=== PATIENT | male | born 1940 | race Caucasian/White ===

== ENCOUNTER → 2021-12-21 11:18 | Outpatient (CLI) | payer MEDICARE, SELFPAY ==
[2021-12-21 11:56] LABS: Basophils # 0.1 K/mm3 (0-0.2); Basophils % 0.8 % (0.1-2.0); Eosinophils # 0.3 K/mm3 (0.0-0.4); Eosinophils % 4.6 % (0.1-12.0); Hematocrit 46.8 % (42.0-52.0); Hemoglobin 15.6 g/dL (14.1-18.0); Lymphocytes # 1.6 K/mm3 (0.7-4.5); Lymphocytes % 24.6 % (10-50); Mean Corpuscular HGB Conc 33.4 g/dL (31.8-35.4); Mean Corpuscular Hemoglobin 33.1 pg (27.0-31.2); Monocytes # 0.5 K/mm3 (0.1-1.0); Monocytes % 8.1 % (1.7-9.3); Neutrophils % 61.9 % (37.0-80.0); Platelet Count 268 K/mm3 (142-424); Red Blood Count 4.72 M/mm3 (4.60-6.20); Red Cell Distribution Width 12.4 % (11.5-17.5); White Blood Count 6.4 K/mm3 (4.8-10.8)
[2021-12-21 12:20] LABS: Chloride 103 mmol/L (98-107); Potassium 4.8 mmoL/L (3.5-5.1); Sodium 136 mmol/L (136-145)
[2021-12-21 12:22] LABS: Alanine Aminotransferase 73 U/L (12-78); Alkaline Phosphatase 98 U/L (38-126); Aspartate Amino Transferase 55 U/L (17-59); Bilirubin,Total 0.8 mg/dl (0.2-1.3); Blood Urea Nitrogen 23 mg/dl (9-20); Estimated Glomerular Filt Rate 93 ml/min (>60); GFR (African American) 112 ML/MIN (>60)
[2021-12-21 12:23] LABS: Albumin/Globulin Ratio 1.5 (1.1-1.8); Anion Gap 8.8 mEq/L (5-15); Calcium 8.9 mg/dl (8.4-10.2); Carbon Dioxide 29 mmol/L (22.0-30.0); Globulin 2.6 g/dL (1.3-3.2); Glucose 93 mg/dl (74-100); Total Protein,Serum 6.6 g/dl (6.3-8.2)
== END ==
PROVIDERS: PCP Internal Medicine Adolescent Medicine; Referring Provider Otolaryngology; Visit Provider Internal Medicine Adolescent Medicine
DX: Z01.812 Encounter for preprocedural laboratory examination (principal); Z11.52 Encounter for screening for COVID-19; C44.91 Basal cell carcinoma of skin, unspecified
CPT/HCPCS: 36415; 80053; 85025; C9803; U0003; U0005

== ENCOUNTER → 2021-12-24 08:34 | Day surgery (SDC) | payer MEDICARE, SELFPAY ==
[2021-12-23 08:58] VITALS: BMI 29.2
[2021-12-24 09:09] VITALS: BP 160/84; PULSE 111; RESP 18; TEMP 37.5; O2SAT 98
--- NOTE | 2021-12-24 11:02 | SUR.PREOP ---
Procedure postponed per Dr Oliveira. Patient to follow up with Dr Hall to address temperature and heart rate and to obtain clearance to stop taking aspirin prior to procedure.
== END ==
PROVIDERS: PCP Family Medicine; Visit Provider Otolaryngology
DX: Z53.8 Procedure and treatment not carried out for other reasons (principal); C44.91 Basal cell carcinoma of skin, unspecified
CPT/HCPCS: 40525

== ENCOUNTER → 2022-02-03 09:56 | Outpatient (CLI) | payer MEDICARE, SELFPAY ==
[2022-02-03 10:22] LABS: Basophils # 0.1 K/mm3 (0-0.2); Basophils % 1.1 % (0.1-2.0); Eosinophils # 0.2 K/mm3 (0.0-0.4); Eosinophils % 3.9 % (0.1-12.0); Hematocrit 44.4 % (42.0-52.0); Hemoglobin 14.8 g/dL (14.1-18.0); Lymphocytes # 1.5 K/mm3 (0.7-4.5); Lymphocytes % 25.6 % (10-50); Mean Corpuscular HGB Conc 33.3 g/dL (31.8-35.4); Mean Corpuscular Hemoglobin 33.8 pg (27.0-31.2); Mean Corpuscular Volume 101.6 fl (80-94); Mean Platelet Volume 8.7 fl (7.4-10.4); Monocytes # 0.5 K/mm3 (0.1-1.0); Monocytes % 8.9 % (1.7-9.3); Neutrophils # 3.6 K/mm3 (1.8-7.8); Neutrophils % 60.5 % (37.0-80.0); Platelet Count 281 K/mm3 (142-424); Red Blood Count 4.37 M/mm3 (4.60-6.20)
[2022-02-03 10:54] LABS: Alanine Aminotransferase 65 U/L (12-78); Albumin Level 3.8 g/dl (3.5-5.0); Albumin/Globulin Ratio 1.6 (1.1-1.8); Alkaline Phosphatase 79 U/L (38-126); Aspartate Amino Transferase 42 U/L (17-59); Bilirubin,Total 0.7 mg/dl (0.2-1.3); Blood Urea Nitrogen 26 mg/dl (9-20); Calcium 9.1 mg/dl (8.4-10.2); Carbon Dioxide 29 mmol/L (22.0-30.0); Chloride 105 mmol/L (98-107); Estimated Glomerular Filt Rate 108 ml/min (>60); GFR (African American) 131 ML/MIN (>60); Globulin 2.4 g/dL (1.3-3.2); Glucose 99 mg/dl (74-100); Sodium 138 mmol/L (136-145); Total Protein,Serum 6.2 g/dl (6.3-8.2)
== END ==
PROVIDERS: Visit Provider Otolaryngology
DX: Z01.818 Encounter for other preprocedural examination (principal); Z11.52 Encounter for screening for COVID-19; C44.91 Basal cell carcinoma of skin, unspecified
CPT/HCPCS: 36415; 80053; 85025; C9803; U0003; U0005

== ENCOUNTER 2022-02-06 06:08 | Day surgery (SDC) | payer MEDICARE, SELFPAY ==
[2022-02-03 12:36] VITALS: BMI 27.7
[2022-02-06 06:28] VITALS: BP 138/74; PULSE 78; RESP 18; TEMP 37.1; O2SAT 97
--- NOTE | 2022-02-06 07:05 | P.PN_ITS ---
[facility] Anesthesia Checklist - Patient Identification Patient Identification: Arm Band - Structural Data Admitted From: Home Planned Operative Procedure/s: Excision lesion lip Consent for Planned Operative Procedure(s) Verified: Yes - NPO Status Verified Time NPO: 00:00 - Additional verifications Anesthesia Reactions: No Hx Blood Transfusions: No Blood Transfusion Reaction: No - Airway Assessment C-Spine Mobility Assessed: Yes TMJ Mobility Assessed: Yes Dentition: Poor Dentition - Neurological Assessment Level of Consciousness: Awake Hx Seizures: No Numbness or tingling in extremities: No - Anesthesia Plan Anesthesia Risk discussed: Yes Anesthesia Plan: Verified ASA Class: II Anesthesia Type: MAC [facility] History I have reviewed the patient's past medical history: Yes Medical History: Reports:: Hypertension Denies:: Cancer, Diabetes Mellitus Type 1, Diabetes Mellitus Type 2, Internal Pacemaker, MRSA, Seizures *Have you ever received a pneumonia vaccine?: Yes *Have you received a flu vaccine this season?: Yes Other Medical History: Reports: Other. Denies: Blood Transfusion Reaction Anesthesia experience/problems:: None Other Surgeries: Yes: Other. No: Pacemaker Amputation: No Fractures: No - *Social History Last grade of school completed: High school graduate Smoking Status: Never smoker Alcohol Intake: never Substance Use Type: denies use *Occupational Status:: retired Housing: house Household Members: spouse *Travel in the last 8 weeks: None Family Hx:: Non-contributory
--- NOTE | 2022-02-06 09:03 | P.OP_ITS ---
Date of procedure: 02/06/22 Pre-op Diagnosis:: Basal cell carcinoma lower lip Post-op Diagnosis:: Basal cell carcinoma lower lip Procedure performed:: Wide local excision with complex multilayer reconstruction Surgeon:: Marques Oliveira MD [employer] IN[employer]ER:: Other Anesthesia: MAC Estimated blood loss (mL): 0 Operative findings:: Exophytic basal cell skin cancer 1 cm from the left oral commissure Operative note:: Patient was brought to the operating room and after adequate IV sedation he was placed supine and 1% lidocaine with epinephrine used to locally infiltrate the lower lip then the lip was prepped and draped in the usual sterile fashion and then the vermilion border marked. The obvious skin cancer was excised with 5 mm margins and the patient included full-thickness resection of the lower lip including the dry skin, vermilion border, and wet portion of the lip as well as the underlying minor salivary glands and the orbicularis monica muscle. The labial artery was identified and ligated with 3-0 silk. The specimen was marked and sent for section analysis. The full-thickness V-shaped excision was then closed by reapproximating the mucosal layer with 5-0 chromic, the orbicularis and submucosal layer using 4-0 Vicryl and the wet lip with 5-0 chromic and the dry skin with 6-0 nylon. Care was taken to realign the vermilion border. A sterile dressing was applied and the procedure concluded. All counts correct. Blood loss minimal. Patient was sent recovery in stable condition. Condition: stable Disposition: PACU Complications:: None
[2022-02-06 09:10] VITALS: BP 111/74; PULSE 69; RESP 16; TEMP 36.6; O2SAT 95
[2022-02-06 09:25] VITALS: BP 125/72; PULSE 68; RESP 16; TEMP 36.6; O2SAT 96
[2022-02-06 09:40] VITALS: BP 135/87; PULSE 73; RESP 16; TEMP 36.6; O2SAT 96
[2022-02-06 09:55] VITALS: BP 133/87; PULSE 62; RESP 16; TEMP 36.6; O2SAT 96
== END 2022-02-06 09:55 | disposition home or self-care (01) ==
LOC: OR 06:10
PROVIDERS: PCP Internal Medicine Adolescent Medicine; Visit Provider Otolaryngology
DX: C44.01 Basal cell carcinoma of skin of lip (principal); I10 Essential (primary) hypertension; Z88.2 Allergy status to sulfonamides; Z79.82 Long term (current) use of aspirin; Z79.899 Other long term (current) drug therapy
CPT/HCPCS: 13152; 40530; 88305

== ENCOUNTER 2023-07-04 19:01 | Emergency (ER) | payer MEDICARE, SELFPAY ==
[2023-07-04 19:02] VITALS: BP 151/104; PULSE 108; RESP 20; TEMP 36.6; O2SAT 97; BMI 30.4
--- NOTE | 2023-07-04 19:42 | CT_ITS ---
PROCEDURE INFORMATION: Exam: CT Abdomen And Pelvis With Contrast Exam date and time: 07/04/2023 8:13 PM Age: 82 years old Clinical indication: Abdominal pain; Additional info: Hematuria, concern for bladder mass on US TECHNIQUE: Imaging protocol: Computed tomography of the abdomen and pelvis with contrast. Radiation optimization: All CT scans at this facility use at least one of these dose optimization techniques: automated exposure control; mA and/or kV adjustment per patient size (includes targeted exams where dose is matched to clinical indication); or iterative reconstruction. Contrast material: ISOVUE; Contrast volume: 75 ml; Contrast route: IV; REPORTING DATA: Count of CT and Cardiac NM exams in prior 12 months: This patient has received 0 known CTs and 0 known cardiac nuclear medicine studies in the 12 months prior to the current study. COMPARISON: No relevant prior studies available. FINDINGS: Liver: Unremarkable. Gallbladder and bile ducts: Unremarkable. Pancreas: Unremarkable. Spleen: Unremarkable. Adrenal glands: Unremarkable. Kidneys and ureters: Left renal cyst. Mild bilateral hydroureteronephrosis. Stomach and bowel: Colonic diverticulosis without CT evidence of acute diverticulitis. Appendix: No evidence of appendicitis. Intraperitoneal space: Unremarkable. Vasculature: Unremarkable. Lymph nodes: Unremarkable. Urinary bladder: Soft tissue density within the posterior aspect of the bladder measuring 5.6 x 3.1 cm. Reproductive: Enlarged prostate gland measuring 7.3 cm. Bones/joints: Severe left hip osteoarthrosis. Soft tissues: Unremarkable. IMPRESSION: 1. Soft tissue density within the dependent posterior aspect of the bladder measuring 5.6 cm, indeterminate for mass lesion versus blood products in the setting of hematuria and incompletely evaluated on this single contrast phase exam . Recommend CT urogram to assess intrinsic hyperdensity versus enhancement of material within the bladder lumen. 2. Mild bilateral hydroureteronephrosis. 3. Prostatomegaly. COMMENTS: Consistent with the [employer]'s Incidental Findings Committee white paper (J Am Saida Radiol 2018): Any incidental renal lesion less than 1 cm or classified as too small to characterize, or any incidental cystic renal lesion characterized as simple-appearing, is likely benign. No follow-up imaging is recommended for these lesions per consensus recommendations based on imaging criteria.
--- NOTE | 2023-07-04 19:44 | HMH.EDGENADL ---
Discharge Plan Disposition Patient Disposition: Home, Self-Care Prescriptions Prescriptions: New levofloxacin 500 mg tablet 500 mg PO DAILY 14 Days Qty: 14 0RF No Action tamsulosin 0.4 mg capsule,extended release 24hr 0.4 mg PO Q24H oxybutynin chloride 5 mg tablet 15 mg PO DAILY furosemide 40 mg tablet 40 mg PO DAILY meloxicam 15 mg tablet 15 mg PO DAILY amlodipine 5 mg tablet 5 mg PO DAILY tramadol 50 mg tablet 50 mg PO Q6H PRN (Reason: pain) hydrocodone-acetaminophen 5-325 mg tablet 1 tab PO Q6H PRN (Reason: pain) potassium chloride 10 mEq capsule, extended release 10 meq PO DAILY aspirin 81 MG capsule 81 mg PO DAILY hydrocodone-acetaminophen 1 EACH tablet 1 each PO QID PRN (Reason: Moderate To Severe Pain) 3 Days Qty: 10 0RF ondansetron 4 MG tablet,disintegrating 4 mg PO BIDP PRN (Reason: Nausea And Vomiting) 5 Days Qty: 10 0RF Referrals Follow up/Referrals: Adolph Infante MD [Primary Care Provider] - See instructions Haja Vanessa MD [Staff Physician] - See instructions Activity Restrictions/Add. Instructions Additional Instructions/Restrictions: There is some diagnostic uncertainty with what is going on your bladder at the moment. Your CAT scan and ultrasound were concerning for possible malignancy versus clot. It is also possible that the mass that we are seeing is an extension of your prostate and your prostate could be infected. It imperative that you follow-up with a urologist and take your antibiotics as instructed. We do not have a urologist at [facility] will need to call make an appointment with the urologist of your choosing. Clinical Impressions Clinical Impression: Hematuria, Bladder mass, Acute UTI Instructions Patient Instructions: DI for Urinary Tract Infection (UTI), DI for Urinary Tract Infection in Children Discharge ED Provider: Jace Myers General Adult HPI General Chief complaint: Urogenital-Male Stated complaint: passing blood thru kidneys Time Seen by Provider: 07/04/23 19:09 Mode of Arrival: Wheelchair Source of Information: Patient Limitations: No Limitations Description of Symptoms (Recalled from ER Triage Doc. by RN): Patient states he started having blood in urine today. Reports it does not hurt just has been burning. History of Present Illness HPI narrative: Patient is an 82-year-old man on aspirin presents today with hematuria. States he has some very mild dysuria but otherwise is predominantly painless. No significant weight loss night sweats or any other complaints. He has known history of BPH was treated with green laser therapy by Dr. Mihai Marcus in 2018. States his PSA has been trending up recently. Denies any flank pain denies any fevers or chills or any other symptoms. States he is having no difficulty with getting his urine out no clots that he is passing. No significant abdominal pain. Related Data Home Medications Medication Instructions Recorded Confirmed tamsulosin 0.4 mg capsule 0.4 mg PO Q24H prostate 01/05/18 02/11/22 amlodipine 5 mg tablet 5 mg PO DAILY bp 11/26/21 02/11/22 furosemide 40 mg tablet 40 mg PO DAILY Fluid 11/26/21 02/11/22 hydrocodone 5 mg-acetaminophen 325 1 tab PO Q6H PRN pain 11/26/21 02/11/22 mg tablet meloxicam 15 mg tablet 15 mg PO DAILY Pain 11/26/21 02/11/22 oxybutynin chloride 5 mg tablet 15 mg PO DAILY bladder 11/26/21 02/11/22 potassium chloride 10 mEq 10 meq PO DAILY Supplement 11/26/21 02/11/22 capsule,extended release tramadol 50 mg tablet 50 mg PO Q6H PRN pain 11/26/21 02/11/22 aspirin 81 mg capsule 81 mg PO DAILY Supplement 12/24/21 02/11/22 Previous Rx's Medication Instructions Recorded hydrocodone 7.5 mg-acetaminophen 1 each PO QID PRN Moderate To 02/06/22 325 mg tablet Severe Pain 3 days #10 tabs ondansetron 4 mg disintegrating 4 mg PO BIDP PRN Nausea And 02/06/22 tablet Vomiting 5 days #10 tabs levofloxacin 500 mg tablet
[2023-07-04 19:52] LABS: Appearance,Urine TURBID (Clear); Bilirubin,Urine Negative (Negative); Blood, Urine 3+ (Negative); Color,Urine RED (Yellow); Glucose,Urine (UA) Negative (Negative); Ketones,Urine 1+ (Negative); Leukocyte Esterase,Urine 2+ (Negative); Microscopic, Urine URINE MICROSCOPIC (MICROSCOPIC); Nitrate,Urine POSITIVE (Negative); PH,Urine 6.5 (5.0-8.5); Protein,Urine 3+ (Negative)
[2023-07-04 19:54] LABS: Basophils % 0.7 % (0.1-2.0); Chloride 108 mmol/L (98-107); Eosinophils # 0.2 K/mm3 (0.0-0.4); Eosinophils % 3.4 % (0.1-12.0); Hematocrit 52.1 % (42.0-52.0); Hemoglobin 16.7 g/dL (14.1-18.0); Lymphocytes # 1.8 K/mm3 (0.7-4.5); Lymphocytes % 28.5 % (10-50); Mean Corpuscular HGB Conc 32.1 g/dL (31.8-35.4); Mean Corpuscular Hemoglobin 32.1 pg (27.0-31.2); Mean Platelet Volume 8.4 fl (7.4-10.4); Monocytes # 0.4 K/mm3 (0.1-1.0); Monocytes % 6.3 % (1.7-9.3); Neutrophils # 3.9 K/mm3 (1.8-7.8); Neutrophils % 61.1 % (37.0-80.0); Platelet Count 252 K/mm3 (142-424); Potassium 3.9 mmoL/L (3.5-5.1); Red Blood Count 5.21 M/mm3 (4.60-6.20); Red Cell Distribution Width 12.7 % (11.5-17.5); Sodium 143 mmol/L (136-145); White Blood Count 6.3 K/mm3 (4.8-10.8)
[2023-07-04 19:56] LABS: Alanine Aminotransferase 85 U/L (12-78); Aspartate Amino Transferase 59 U/L (17-59); Blood Urea Nitrogen 20 mg/dl (9-20); Creatinine Clearance Estimated 90 mL/min (50-200); Estimated Glomerular Filt Rate 81 ml/min (>60); GFR (African American) 98 ML/MIN (>60)
[2023-07-04 19:57] LABS: Albumin Level 4.2 g/dl (3.5-5.0); Albumin/Globulin Ratio 1.2 (1.1-1.8); Alkaline Phosphatase 130 U/L (38-126); Anion Gap 15.9 mEq/L (5-15); Bilirubin,Total 0.8 mg/dl (0.2-1.3); Calcium 9.9 mg/dl (8.4-10.2); Carbon Dioxide 23 mmol/L (22.0-30.0); Globulin 3.5 g/dL (1.3-3.2); Glucose 110 mg/dl (74-100); Total Protein,Serum 7.7 g/dl (6.3-8.2)
[2023-07-04 20:02] LABS: Activated Partial Thrombo Time 26.4 seconds (22.8-30.6); INR 0.98 (0.9-1.1); Prothrombin Time 10.6 seconds (10.1-12.5)
[2023-07-04 20:15] LABS: Bacteria,Urine 2+ /lpf; RBC,Urine TNTC #/hpf (0-3)
--- NOTE | 2023-07-04 21:18 | PC.NURSE ---
Rounded on patient at this time
[2023-07-04 21:29] VITALS: BP 140/89; PULSE 97; RESP 16; TEMP 36.8
== END 2023-07-04 21:39 | disposition home or self-care (01) ==
PROVIDERS: Emergency Provider Student in an Organized Health Care Education/Training Program; PCP Family Medicine
DX: R31.9 Hematuria, unspecified (principal); N39.0 Urinary tract infection, site not specified; Z79.82 Long term (current) use of aspirin; N40.1 Benign prostatic hyperplasia with lower urinary tract symptoms; N32.89 Other specified disorders of bladder
CPT/HCPCS: 74177; 80053; 81001; 85025; 85610; 85730; 87086; 96360; 99285; Q9967

== ENCOUNTER 2024-02-25 15:34 | Outpatient (CLI) | payer MEDICARE, SELFPAY ==
--- NOTE | 2024-02-25 | XR_ITS ---
PROCEDURE INFORMATION: Exam: XR Left Hip Exam date and time: 02/25/2024 4:06 PM Age: 83 years old Clinical indication: Hip pain; Left hip; Additional info: Left hip pain TECHNIQUE: Imaging protocol: Radiologic exam of the left hip. Views: 2 or 3 views hip with pelvis when performed. COMPARISON: CT ABDOMEN PELVIS W CON 07/04/2023 8:13 PM FINDINGS: Bones/joints: Severe degenerative osteoarthritis, left hip joint. [id number] configuration left hip joint. Prominent foci of subcortical cystic erosive change within the femoral head as well as the subcortical margin of the acetabulum. No evidence of acute osseous injury. Moderate narrowing right hip joint. Soft tissues: Unremarkable. IMPRESSION: Severe degenerative osteoarthritis, left hip joint.
--- NOTE | 2024-02-25 15:39 | XR_ITS ---
PROCEDURE INFORMATION: Exam: XR Right Knee Exam date and time: 02/25/2024 4:06 PM Age: 83 years old Clinical indication: Pain; Knee; Right; Additional info: Pain in legs in back TECHNIQUE: Imaging protocol: Radiologic exam of the right knee. Views: 3 views. COMPARISON: VENOUS LOWER EXT ARABELLA 03/13/2017 3:23 PM FINDINGS: Bones/joints: Moderate tricompartmental degenerative osteoarthritis. Prominent regions of subcortical cystic degenerative change involving the femoral condyles as well as the tibial plateau. Soft tissues: Normal. IMPRESSION: 1. No evidence of acute osseous injury. 2. Moderate tricompartmental degenerative osteoarthritis.
--- NOTE | 2024-02-25 15:39 | XR_ITS ---
PROCEDURE INFORMATION: Exam: XR Lumbosacral Spine Exam date and time: 02/25/2024 4:06 PM Age: 83 years old Clinical indication: Pain; Lumbago; Additional info: Pain in legs and back TECHNIQUE: Imaging protocol: Radiologic exam of the lumbosacral spine. Views: 2 or 3 views. COMPARISON: CR XR HIP LT 2-3V W/PELVIS 02/25/2024 4:06 PM FINDINGS: Bones/joints: Lumbar spondylosis with multilevel disc degeneration. Diffuse moderately severe-severe disc degeneration T12-L1 through L5-S1. Mild scoliosis of the lumbar spine convexity to the right. Severe degenerative changes with ecbw-hc-fwoo configuration partially visualized in the left hip joint. Soft tissues: Unremarkable. IMPRESSION: Diffuse moderately severe-severe disc degeneration T12-L1 through L5-S1.
--- NOTE | 2024-02-25 15:39 | XR_ITS ---
PROCEDURE INFORMATION: Exam: XR Right Hip Exam date and time: 02/25/2024 4:06 PM Age: 83 years old Clinical indication: Hip pain; Right hip; Additional info: Pain in legs and back TECHNIQUE: Imaging protocol: Radiologic exam of the right hip. Views: 2 or 3 views hip with pelvis when performed. COMPARISON: CT ABDOMEN PELVIS W CON 07/04/2023 8:13 PM FINDINGS: Bones/joints: A severe degenerative osteoarthritis left hip joint. Moderate-moderately severe degenerative changes right hip joint. Foci of subcortical cystic degenerative change within the femoral head as well as the acetabular rim. Soft tissues: Unremarkable. IMPRESSION: 1. Moderate-moderately severe degenerative changes right hip joint. 2. No evidence of acute osseous injury.
--- NOTE | 2024-02-25 16:04 | XR_ITS ---
PROCEDURE INFORMATION: Exam: XR Left Knee Exam date and time: 02/25/2024 4:06 PM Age: 83 years old Clinical indication: Pain; Left; Patient HX: Unable to fully extend knee; Additional info: Left knee pain TECHNIQUE: Imaging protocol: Radiologic exam of the left knee. Views: 3 views. COMPARISON: VENOUS LOWER EXT ARABELLA 03/13/2017 3:23 PM FINDINGS: Bones/joints: Tricompartmental moderate-moderately severe degenerative osteoarthritis. Findings most pronounced lateral knee compartment. Soft tissues: Normal. IMPRESSION: 1. Tricompartmental moderate-moderately severe degenerative osteoarthritis. Findings most pronounced lateral knee compartment. 2. No evidence of acute osseous injury.
== END 2024-02-25 23:59 | disposition home or self-care (01) ==
LOC: RAD 15:36
PROVIDERS: PCP Family Medicine; Visit Provider Family Medicine
DX: M54.59 Other low back pain (principal); M25.562 Pain in left knee; M25.561 Pain in right knee; M25.551 Pain in right hip; M25.552 Pain in left hip
CPT/HCPCS: 72100; 73502; 73562

== ENCOUNTER 2025-05-01 11:03 | Outpatient (CLI) | payer MEDICARE, SELFPAY ==
[2025-05-01 17:23] LABS: Hematocrit 47.1 % (42.0-52.0); Hemoglobin 14.9 g/dL (14.1-18.0); Immature Granulocytes % 0.8 %; Mean Corpuscular HGB Conc 31.6 g/dL (31.8-35.4); Mean Corpuscular Hemoglobin 31.4 pg (27.0-31.2); Mean Corpuscular Volume 99.4 fl (80-94); Nucleated Red Blood Cells % 0 %; Platelet Count 227 K/mm3 (142-424); Red Blood Count 4.74 M/mm3 (4.60-6.20); Red Cell Distribution Width-SD 47.8 fL; White Blood Count 6.5 K/mm3 (4.8-10.8)
[2025-05-01 18:27] LABS: Alanine Aminotransferase 83 U/L (12-78); Albumin Level 4.3 g/dl (3.5-5.0); Albumin/Globulin Ratio 1.4 (1.1-1.8); Alkaline Phosphatase 106 U/L (38-126); Anion Gap 20.8 mEq/L (5-15); Aspartate Amino Transferase 62 U/L (17-59); Bilirubin,Total 0.9 mg/dl (0.2-1.3); Blood Urea Nitrogen 25 mg/dl (9-20); Calcium 8.8 mg/dl (8.4-10.2); Carbon Dioxide 22 mmol/L (22.0-30.0); Chloride 103 mmol/L (98-107); Cholesterol 189 mg/dl (140-200); Creatinine,Serum 0.80 mg/dl (0.66-1.25); Estimated Glomerular Filt Rate 92 ml/min (>60); GFR (African American) 111 ML/MIN (>60); Globulin 3.0 g/dL (1.3-3.2); Glucose 65 mg/dl (74-100); HDL Cholesterol 32 mg/dl (40-60); Potassium 4.8 mmoL/L (3.5-5.1); Sodium 141 mmol/L (136-145); Total Protein,Serum 7.3 g/dl (6.3-8.2); Triglycerides 123 mg/dl (30-150)
[2025-05-01 18:55] LABS: Hepatitis C Ab Qual. W/ RFX REACTIVE (Negative)
[2025-05-01 18:58] LABS: Thyroid Stimulating Hormone 1.30 uIU/mL (0.465-4.68)
[2025-05-03 10:12] LABS: Hepatitis B Surface Antigen Negative (Negative)
== END 2025-05-01 23:59 | disposition home or self-care (01) ==
LOC: LAB.DROPOF 05-02 09:52
PROVIDERS: PCP Family Medicine; Visit Provider Family Medicine
DX: I10 Essential (primary) hypertension (principal); Z11.59 Encounter for screening for other viral diseases; Z11.4 Encounter for screening for human immunodeficiency virus [HIV]
CPT/HCPCS: 80053; 80061; 80074; 84443; 85025; 87340; 87389; 87522

== ENCOUNTER 2025-05-08 12:29 | Outpatient (CLI) | payer MEDICARE, SELFPAY ==
--- OUTSIDE RECORDS SUMMARY | 2025-05-08 12:31 | XMS_ITS | Referral Summary ---
Author Organization [employer] ([place], [place], [place], [place]) Address [address] [place] [address] Care Team Providers Care Stunt Double Name Role Phone Ricky Steven MD Primary Care Provider [phone] Allergies Active Allergy Reactions Criticality Noted Date Comments Sulfa (Sulfonamide Antibiotics) Other (See Comments) 10/21/2024 FELT LIKE HE WAS BURNING Medications amLODIPine (NORVASC) 5 MG tablet Take 1 tablet (5 mg total) by mouth daily. 08/02/2024 Active bumetanide (BUMEX) 1 MG tablet Take 1 tablet (1 mg total) by mouth once. 10/13/2024 Active diclofenac potassium (CATAFLAM) 50 MG tablet Take 1 tablet (50 mg total) by mouth 2 (two) times daily. 08/02/2024 Active ketorolac (ACULAR) 0.5 % ophthalmic solution 1 drop 4 (four) times daily. 09/09/2024 Active ofloxacin (OCUFLOX) 0.3 % ophthalmic solution 1 drop 4 (four) times daily. 09/09/2024 Active potassium chloride (MICRO-K) 10 mEq CR capsule Take 1 capsule (10 mEq total) by mouth 2 (two) times daily. 10/13/2024 Active prednisoLONE acetate (PRED FORTE) 1 % ophthalmic suspension PLACE 1 DROP INTO THE AFFECTED EYE 4 TIMES EACH DAY FOR 7 DAYS, THEN 2 TIMES EACH DAY FOR 14 DAYS 09/09/2024 Active sildenafiL (VIAGRA) 25 MG tablet Take 1 tablet (25 mg total) by mouth daily. 07/14/2024 Active aspirin 81 MG EC tablet Take 1 tablet (81 mg total) by mouth daily. Active Active Problems Problem Noted Date Diagnosed Date HTN (hypertension) 11/10/2024 Social History Tobacco Use Types Packs/Day Years Used Date Smoking Tobacco: Never Smokeless Tobacco: Never Tobacco Cessation:Counseling Given: Not Answered Alcohol Use Standard Drinks/Week Comments Not Currently 0 (1 standard drink = 0.6 oz pur e alcohol) Sex and Gender Information Value Date Recorded Sex Assigned at Not on file Legal Sex Male 5:57 PM CDT Gender Identity Not on file Sexual Orientation Not on file Last Filed Vital Signs Vital Sign Reading Time Taken Comments Blood Pressure 171/87 11/10/2024 9:35 AM EST Pulse 83 11/10/2024 9:35 AM EST Temperature 36.4 C (97.6 F) 11/10/2024 9:35 AM EST Respiratory Rate 20 11/10/2024 9:35 AM EST Oxygen Saturation 97% 11/10/2024 9:35 AM EST Inhaled Oxygen Concentration - - Weight 122.5 kg (270 lb) 11/10/2024 8:06 AM EST Height 195.6 cm (6' 5 ) 11/10/2024 8:06 AM EST Body Mass Index 32.02 11/10/2024 8:06 AM EST Plan of Treatment Not on file Medical Devices Implanted Type Area Agronomy Research Manager Device Identifier Shelf Expiration Date Model / Serial / Lot Iol Uv Clareon +20.5 [id number] - [id number] Implanted:Qty: 1 on 10/27/2024 by Fazal Alford MD at [facility] IMPLANTS Right: Eye CEHIKH 08/18/2027 [id number] / [id number] / Iol Uv Clareon +21.5 [id number] - [id number] Implanted:Qty: 1 on 11/10/2024 by Fazal Alford MD at [facility] IMPLANTS Left: Eye CHEIKH 08/17/2027 [id number] / [id number] / Insurance [employer] MEDICARE PPO Care Teams Stunt Double Relationship Specialty Start Date End Date Ricky Steven MD [address] [place] [id number] PCP - General 10/27/24
--- OUTSIDE RECORDS SUMMARY | 2025-05-08 12:31 | XMS_ITS | Clinical Summary ---
Author Organization [employer] ([place], [place], [place], [place]) Address [address] [place] [address] Care Team Providers Care Engine Designer Name Role Phone Ricky Steven MD Primary Care Provider [phone] Allergies Active Allergy Reactions Criticality Noted Date [...] 11/10/2024 8:06 AM EST Plan of Treatment Health Maintenance Due Date Last Done Comments Depression Screening (12+) 1951 Pneumococcal 50+ years (1 of 1 - PCV) 1989 Shingles Vaccine (Zoster) (1 of 2) 1989 DTAP/TDAP/TD VACCINES (2 - Td or Tdap) 09/11/2009 Respiratory Syncytial Virus (RSV) Adult or (1 - 1-dose 75+ series) 2014 Medicare Initial AWV [id number] 10/27/2019 COVID-19 VACCINE ( season) 06/26/202410/2020, 12/27/2020 Falls Risk Screening 10/26/2024 Influenza Vaccine (#1) 2025 Tobacco Cessation Counseling and Screening (12+) 11/10/2025 11/10/2024 Medical Devices Implanted Type Area Wet Machine Tender Device Identifier Shelf Expiration Date Model / Serial / Lot Iol Uv Aprilon +20.5 [id number] - [id number] Implanted:Qty: 1 on 10/27/2024 by Fazal Alford MD at [facility] IMPLANTS Right: Eye CHEIKH 08/18/2027 [id number] / [id number] / Iol Uv Clareon +21.5 [id number] - [id number] Implanted:Qty: 1 on 11/10/2024 by Fazal Alford MD at [facility] IMPLANTS Left: Eye CHEIKH 08/17/2027 [id number] / [id number] / Insurance [id number] [employer] MEDICARE PPO Care Teams Engine Designer Relationship Specialty Start Date End Date Ricky Steven MD [address] [place] [address] [phone] PCP - General 10/27/24
[2025-05-08 13:06] LABS: INR 0.98 (0.9-1.1); Prothrombin Time 10.9 seconds (10.1-12.5)
[2025-05-09 09:36] LABS: Hep A Ab, Total Negative (Negative); Hep B Core Ab, Total Negative (Negative); Hep B Surface Ab, Qual Non Reactive (.)
== END 2025-05-08 23:59 | disposition home or self-care (01) ==
LOC: LAB 12:30
PROVIDERS: PCP Family Medicine; Visit Provider Family Medicine
DX: B19.20 Unspecified viral hepatitis C without hepatic coma (principal)
CPT/HCPCS: 36415; 85610; 86704; 86706; 86708; 87902